=== PATIENT | female | born 2005 | race Hispanic/Latino ===

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

== ENCOUNTER 2023-12-11 00:30 | Inpatient (IN) | payer SELFPAY ==
[2023-12-11] MEDS ORDERED: Acetaminophen 500 MG TAB ONE ×2 (00:49→08:31)
[2023-12-11 01:28] LABS: #Basophils 0.05 10x3/uL (0.0-0.2); #Eosinphils 0.01 10x3/uL (0.0-0.5); #Monocytes 1.09 10x3/uL (0.0-1.1); #Neutrophils 12.44 10x3/uL (1.5-8.4); %Basophils 0.3 % (0.0-2.0); %Eosinophils 0.1 % (0.0-6.0); %Lymphocytes 12.7 % (18.0-47.0); %Neutrophils 79.5 % (40.0-75.0); Hematocrit 42.7 % (34.9-44.5); Hemoglobin 14.6 g/dL (12.0-15.5); Mean Corpuscular HGB CONC 34.2 g/dL (32.0-36.0); Mean Corpuscular Hemoglobin 29.6 pg (27.0-33.0); Mean Corpuscular Volume 86.6 fL (81.6-98.3); Mean Platelet Volume 9.3 fL (7.4-10.4); Platelet Count 252 10x3/uL (150-450); RBC Distribution Width 12.9 % (11.5-14.5); Red Blood Cell (RBC) Count 4.93 10x6/uL (3.90-5.03); White Blood Cell (WBC) Count 15.6 10x3/uL (3.5-10.5)
[2023-12-11 01:29] LABS: ALT (SGPT) 28 U/L (8-55); AST (SGOT) 27 U/L (5-34); Albumin 4.1 g/dL (3.5-5.0); Alkaline Phosphatase 99 U/L (40-100); Anion Gap 17 mmol/L (10-20); BUN (Urea Nitrogen) 11 mg/dL (7.0-18.7); Bilirubin, Total 0.4 mg/dL (0.2-1.2); Calc. Creatinine Clearance 0 mL/min (70-130); Calcium 9.5 mg/dL (7.8-10.44); Carbon Dioxide 18 mmol/L (22-29); Chloride 106 mmol/L (98-107); Estimated GFR 110; Glucose 116 mg/dL (70-105); Potassium 3.7 mmol/L (3.5-5.1); Protein, Total 8.1 g/dL (6.0-8.3); Sodium 137 mmol/L (136-145)
[2023-12-11 01:42] LABS: BHCG - Serum Negative (NEGATIVE); Pregs Control Background? CLEAR/WHITE (CLR/WHITE); Pregs Control Bar Appear? YES (CONTROL BAR)
[2023-12-11] MEDS ORDERED: cefTRIAXone (ROCEPHIN) 1 GM VIAL ONE (01:53)
[2023-12-11] MEDS ORDERED: Ketorolac Tromethamine 30 MG (1 mL) VIAL ONE (02:00)
[2023-12-11] MEDS ORDERED: Piperacillin/Tazobactam 4.5 GM VIAL ONE (02:43)
[2023-12-11 02:51] LABS: Influenza A by NAA Not Detected (NotDetected); Influenza B by NAA Not Detected (NotDetected); SARS-CoV-2 NAA Rapid Test Not Detected (NotDetected)
[2023-12-11 02:58] LABS: Clarity Clear (Clear); Leukocyte Negative (Negative)
[2023-12-11 02:59] LABS: Bilirubin Negative (Negative); Glucose, Urine (Dipstick) Negative (Negative); Ketone, Urine Negative (Negative); Nitrite Negative (Negative); Protein, Urine (Dipstick) Negative (Neg-Trace); Urobilinogen Normal mg/dL (Less than 2)
[2023-12-11 03:00] LABS: Bacteria/HPF Rare-Few HPF (None Seen); Blood, Urine 50 (Negative); CAUTI Indications for Culture Alt mental st,lethar; RBC/HPF 0-3 HPF (0-3); Squamous Epithelial 0-3 HPF (0-3); WBC/HPF 0-3 HPF (0-3)
[2023-12-11 03:01] LABS: Urine Culture Reflex No No
[2023-12-11 04:52] LABS: Acetaminophen 11 mcg/mL (10.0-30.0); Alcohol Less than 10.0 mg/dL (Less than 10); Salicylate Less than 8.0 mg/dL (15.0-30.0)
[2023-12-11 05:02] LABS: Amphetamine Not Detected (NotDetected); Barbiturates Screen Not Detected (NotDetected); Benzodiazepine Screen Not Detected (NotDetected); Cocaine Metabolite Screen Not Detected (NotDetected); Methadone Not Detected (NotDetected); Methamphetamine Not Detected (NotDetected); Opiate Screen Not Detected (NotDetected); Oxycodone Screen Not Detected (NotDetected); Phencyclidine (PCP) Not Detected (NotDetected); THC/Cannabinoid Screen Not Detected (NotDetected); Tricyclic Screen Not Detected (NotDetected)
[2023-12-11] MEDS ORDERED: Communication Order-Pharmacy FS PRN (06:29)
[2023-12-11] MEDS ORDERED: Piperacillin/Tazobactam 3.375 GM in Sodium Chloride 0.9% 100 ML IVPB SCH (06:30)
[2023-12-11] MEDS ORDERED: Dicyclomine 20 MG TAB ONE (06:45)
[2023-12-11 06:52] VITALS: BMI 27.6
[2023-12-11 06:54] LABS: Magnesium 1.5 mg/dL (1.7-2.2)
[2023-12-11] MEDS ORDERED: NS 0.9% w/ 20 MEQ KCL 1,000 ML ONE (07:34)
[2023-12-11] MEDS: VANCOMYCIN 1.75 GM/350 ML BAG 1.75 GM in Premix 1 BAG IVPB SCH (07:45)
[2023-12-11] MEDS: NS 0.9% w/ 20 MEQ KCL 1,000 ML/1,000 ML BAG IV SCH (07:58)
[2023-12-11] MEDS: Piperacillin/Tazobactam 3.375 GM in Sodium Chloride 0.9% 100 ML IVPB SCH ×3 (11:01→17:26)
[2023-12-11] MEDS: Magnesium 2 GM/50 ML(in water) 2 GM in Premix 1 BAG IVPB SCH (11:02)
[2023-12-11] MEDS: Enoxaparin 40 MG (0.4 mL) SYRINGE SC SCH (11:03)
[2023-12-11] MEDS: Acetaminophen 325 MG TAB PO SCH (13:31)
[2023-12-11] MEDS: traMADol HCl 50 MG TAB PO PRN (17:53)
[2023-12-11] MEDS ORDERED: Vancomycin 1.25 GM in Sodium Chloride 0.9% 250 ML 300 ML IVPB SCH (19:00)
[2023-12-12 01:37] LABS: Chlam.trachomatis by PCR,Urine Not Detected (NotDetected); GC N.gonorrhoeae PCR,UrineVOID Not Detected (NotDetected)
[2023-12-12 01:58] LABS: Campy jejuni + coli by PCR POSITIVE (Negative); STEC Shiga Toxin 1+2 Negative (Negative); Salmonella spp. by PCR Negative (Negative); Shigella spp + EIEC by PCR Negative (Negative)
[2023-12-12] MEDS: Ondansetron PF 4 MG/2 ML Vial IVP PRN (05:07)
[2023-12-12 05:11] LABS: Anion Gap 10 mmol/L (10-20); BUN (Urea Nitrogen) 5 mg/dL (7.0-18.7); Calc. Creatinine Clearance 162 mL/min (70-130); Calcium 8.6 mg/dL (7.8-10.44); Carbon Dioxide 20 mmol/L (22-29); Chloride 111 mmol/L (98-107); Estimated GFR 131; Glucose 99 mg/dL (70-105); Potassium 3.9 mmol/L (3.5-5.1); Sodium 137 mmol/L (136-145)
[2023-12-12 05:25] LABS: Hematocrit 37.4 % (34.9-44.5); Hemoglobin 12.4 g/dL (12.0-15.5); Mean Corpuscular HGB CONC 33.2 g/dL (32.0-36.0); Mean Corpuscular Volume 87.4 fL (81.6-98.3); Mean Platelet Volume 9.6 fL (7.4-10.4); Platelet Count 213 10x3/uL (150-450); RBC Distribution Width 13.2 % (11.5-14.5); Red Blood Cell (RBC) Count 4.28 10x6/uL (3.90-5.03); White Blood Cell (WBC) Count 12.7 10x3/uL (3.5-10.5)
[2023-12-12 05:26] LABS: MDiff Complete? YES
[2023-12-12 06:09] LABS: Band 18 % (5-11); Eosinophils 1 % (0-10); Lymphocytes 17 % (28-48); Monocytes 1 % (0-4); Neutrophil 63 % (31-61)
[2023-12-12 06:17] LABS: Anisocytosis SLIGHT = 6-15 cells (100X) (0-5/hpf); Macrocytosis SLIGHT = 6-15 cells (100X) (0-5/hpf); Microcytosis SLIGHT = 6-15 cells (100X) (0-5/hpf)
[2023-12-12 06:18] LABS: Platelet Adequacy Comment Appears Adequate
[2023-12-12 07:21] VITALS: BP 103/54; TEMP 98.4
== END 2023-12-12 11:40 | disposition home or self-care (01) | DRG 872 ==
LOC: CSHERS 00:30 → CSHERHOLD 06:25 → OBSVTOIN 06:29 → CSHTELE 09:12
PROVIDERS: ADMIT Family Medicine; ATTEND Hospitalist
DX: A41.89 Other specified sepsis (principal); A04.9 Bacterial intestinal infection, unspecified; E86.1 Hypovolemia; A08.4 Viral intestinal infection, unspecified; Z88.1 Allergy status to other antibiotic agents; Z79.899 Other long term (current) drug therapy
CPT/HCPCS: 36415; 71045; 74177; 80048; 80053; 80306; 80307; 81001; 82274; 83605; 83630; 83735; 84443; 84703; 85025; 86403; 87040; 87324; 87449; 87491; 87505; 87591; 93005; 96374; 96375; J0696; J1650; J1885; J2405; J2543; J3370; J3475; J3480; J3490